=== PATIENT | female | born 1965 | race African-American/Black ===

== ENCOUNTER 2017-10-15 19:56 | Emergency (ER) | payer SELFPAY ==
[~2017-10-15] VITALS: Ht 157.5 cm; Wt 59.0 kg
[2017-10-15] MEDS ORDERED: ONDANSETRON HCL 4MG/2ML VIAL IV STA (20:48)
[2017-10-15] MEDS ORDERED: MORPHINE SULFATE 4 MG/ML CPJ (NOT FOR IM USE) IV STA (20:48)
[2017-10-15] MEDS ORDERED: MORPHINE SULFATE 10 MG/ML CPJ IV NR (21:32)
[2017-10-15 21:41] LABS: BASOPHILS % 0.7 % (0.0-2.0); EOSINOPHILS % 2.5 % (0.0-5.0); HEMOGLOBIN. 12.8 g/dL (12.0-16.0); LYMPHOCYTES % 24.3 % (20.0-50.0); MEAN CORPUSCULAR HEMOGLOBIN 26.6 pg (28.0-32.0); MEAN CORPUSCULAR VOLUME 81.3 fL (81.0-99.0); MEAN PLATELET VOLUME 9.2 fl (7.4-10.4); NEUTROPHILS % 63.5 % (40.0-76.0); PLATELET 164 x1000/uL (130-400); PROTHROMBIN TIME 10.4 sec (9.4-11.6); RED BLOOD CELL COUNT 4.79 mill/uL (4.2-5.4); RED CELL DISTRIBUTION WIDTH 14.5 % (11.6-14.6)
[2017-10-15 21:53] LABS: CARBON DIOXIDE 33 mEq/L (21-32); CHLORIDE 105 mEq/L (98-107); ETHANOL BLOOD < 10 mg/dL
[2017-10-15 21:55] LABS: TROPONIN I < 0.02 ng/mL (0.00-0.04)
[2017-10-15 21:57] LABS: CLARITY URINE CLEAR (CLEAR); COLOR URINE YELLOW (YELLOW); GLUCOSE URINE NEGATIVE (NEGATIVE); KETONES URINE TRACE (NEGATIVE); LEUKOCYTE ESTERASE URINE 1+ (NEGATIVE); NITRITE URINE NEGATIVE (NEGATIVE); OCCULT BLOOD URINE NEGATIVE (NEGATIVE); PROTEIN URINE NEGATIVE (NEGATIVE); SPECIFIC GRAVITY URINE 1.031 (1.005-1.030)
[2017-10-15 22:10] LABS: *AMPHETAMINES SCREEN URINE NEGATIVE (NEGATIVE); *BARBITURATES SCREEN URINE NEGATIVE (NEGATIVE); *BENZODIAZEPINES SCREEN URINE NEGATIVE (NEGATIVE); *COCAINE SCREEN URINE NEGATIVE (NEGATIVE); CANNABINOID URINE SCREEN PRESUMTIVE POSITIVE (NEGATIVE); METHADONE URINE SCREEN NEGATIVE (NEGATIVE); OPIATES URINE SCREEN PRESUMTIVE POSITIVE (NEGATIVE); PHENCYCLIDINE URINE SCREEN NEGATIVE (NEGATIVE)
[2017-10-15 23:45] VITALS: BP 138/91
== END 2017-10-16 00:25 | disposition home or self-care (01) ==
LOC: ER 20:55
DX: M62.838 Other muscle spasm (principal); R25.2 Cramp and spasm; I10 Essential (primary) hypertension
CPT/HCPCS: 36415; 70450; 71010; 80053; 80305; 81001; 83880; 84484; 85025; 85610; 93005; 96374; 96375; 99285; G0482; J2270; J2405